=== PATIENT | male | born 1995 | race Asian ===

== ENCOUNTER 2018-08-18 11:10 | Emergency (ER) | payer SELFPAY ==
[~2018-08-18] VITALS: Ht 177.8 cm; Wt 65.9 kg
[2018-08-18 14:16] VITALS: BP 148/82
== END 2018-08-18 15:00 | disposition home or self-care (01) ==
LOC: EMS 11:12
DX: S43.402A Unspecified sprain of left shoulder joint, initial encounter (principal); X50.0XXA Overexertion from strenuous movement or load, initial encounter; Y93.89 Activity, other specified; Y92.89 Other specified places as the place of occurrence of the external cause; Y99.8 Other external cause status

== ENCOUNTER 2019-03-18 20:20 | Emergency (ER) | payer OTHER ==
[~2019-03-18] VITALS: Ht 177.8 cm; Wt 70.5 kg
[2019-03-18 21:40] VITALS: BP 135/87
[2019-03-18] MEDS ORDERED: CYCLOBENZAPRINE HCL 10 MG TABLET PO ONE (21:45)
[2019-03-18] MEDS ORDERED: KETOROLAC TROMETHAMINE 60 MG/2 ML VIAL IM ONE (21:45)
== END 2019-03-18 22:18 | disposition home or self-care (01) ==
LOC: EMS 20:23
DX: S16.1XXA Strain of muscle, fascia and tendon at neck level, initial encounter (principal); V49.40XA Driver injured in collision with unspecified motor vehicles in traffic accident, initial encounter; Y93.89 Activity, other specified; Y92.89 Other specified places as the place of occurrence of the external cause; Y99.8 Other external cause status
CPT/HCPCS: 96372; 99283; J1885